=== PATIENT | male | born 2005 | race Two or more races ===

== ENCOUNTER 2024-04-24 13:51 | Emergency (ER) | payer OTHER ==
[~2024-04-24] VITALS: Ht 172.7 cm; Wt 117.1 kg
[2024-04-24 14:04] VITALS: BP 123/84; PULSE 120; RESP 19; O2SAT 97
[2024-04-24] MEDS: ACETAMINOPHEN 500 MG TAB or CAP PO ONE (14:47)
--- NOTE | 2024-04-24 15:24 | ED.PDOC ---
GI ASSESSMENT HPI Comments Left without being seen Chief Complaint: Flu like Time Seen by MD: 14:11 Primary Care Provider: none Reviewed Notes: Nurses Notes, Medications Allergies: Coded Allergies: NO KNOWN ALLERGIES (Unverified , 04/24/24) Mode of Arrival: Ambulatory Physical Exam Exam Comments Left without being seen General Appearance: No Apparent Distress, Normal HEENT: Normal ENT Inspection, Pharynx Normal, TMs Normal Neck: Full Range of Motion, Non-Tender, Normal, Normal Inspection Respiratory: Chest Non-Tender, Lungs Clear, No Accessory Muscle Use, No Respiratory Distress, Normal Breath Sounds Cardiovascular: No Edema, No JVD, No Murmur, No Gallop, Normal Peripheral Pulses, Regular Rate/Rhythm Breast Exam: Deferred Gastrointestinal: No Organomegaly, Non Tender, No Pulsatile Mass, Normal Bowel Sounds, Soft Genitalia: Deferred Pelvic: Deferred Rectal: Deferred Extremities: No calf tenderness, Normal capillary refill, Normal inspection, Normal range of motion, Non-tender, No pedal edema Musculoskeletal : Apperance: Normal Neurologic: Alert, ocean transportation intermediary II-XII nml as Tested, No Motor Deficits, Normal Affect, Normal Mood, No Sensory Deficits Cerebellar Function: Normal Reflexes: Normal Skin: Dry, Normal Color, Warm Lymphatic: No Adenopathy Was a procedure done? Was a procedure done?: No GI differential Dx Differential Diagnosis: Other (Left without being seen) X-Ray, Labs, Meds, VS Vital Signs Date Time Temp Pulse Resp B/P (MAP) Pulse Ox O2 Delivery O2 Flow Rate FiO2 04/24/24 14:04 101.0 120 19 123/84 (97) 97 Time of 1ST Reevaluation: 15:23 (Left without being seen) Reevaluation 1ST: N/A Patient Education/Counseling: Other (LWOBS) Family Education/Counseling: Other (LWOBS) Departure 1 Departure Time of Disposition: 15:23 Impression: Primary Impression: Patient left without being seen Disposition: 07 LEFT AWOL/ELOPED Condition: Other (LWOBS) Critical Care Note Critical Care Time?: No Stability Stability form required: No Heart Score Heart Score: Heart Score Response (Comments) Value History N/A 0 EKG N/A 0 Age N/A 0 Risk Factors N/A 0 Troponin N/A 0 Total 0 [facility]FFANIE ENRIQUEZ [facility] Apr 24, 2024 15:24
== END 2024-04-24 15:15 | disposition left against medical advice (07) ==
LOC: ER 13:51
DX: J11.1 Influenza due to unidentified influenza virus with other respiratory manifestations (principal)